=== PATIENT | female | born 1990 | race Caucasian/White ===

== ENCOUNTER 2020-04-20 15:37 | Emergency (ER) | payer OTHER ==
--- OUTSIDE RECORDS SUMMARY | 2020-04-20 15:45 | XMS ---
:1990 Author Organization [facility] Support Name Relationship Address Phone MANINDER YOUNGBLOOD [facility] [employer] [employer] Unavailable [id number] [phone] [place] [address] NEREIDA PETTY FATHER [address] [place] [address] Re-disclosure Warning The records that you are about to access may contain information from federally- assisted alcohol or drug abuse programs. If such information is present, then the following federally mandated warning applies: This information has been disclosed to you from records protected by federal confidentiality rules (42 CFR part 2). The federal rules prohibit you from making any further disclosure of this information unless further disclosure is expressly permitted by the written consent of the person to whom it pertains or as otherwise permitted by 42 CFR part 2. A general authorization for the release of medical or other information is NOT sufficient for this purpose. The Federal rules restrict any use of the information to criminally investigate or prosecute any alcohol or drug abuse patient.The records that you are about to access may contain highly sensitive health information, the redisclosure of which is protected by Article 27-F of the [facility] Public Health law. If you continue you may haveaccess to information: Regarding HIV / AIDS; Provided by facilities licensed or operated by the [facility] Office of Mental Health; or Provided by the [facility] Office for People With Developmental Disabilities. If such information is present, then the following [facility] mandated warning applies: This information has been disclosed to you from confidential records which are protected by state law. State law prohibits you from making any further disclosure of this information without the specific written consent of the person to whom it pertains, or as otherwise permitted by law. Any unauthorized further disclosure in violation of state law may result in a fine or correction sentence or both. A general authorization for the release of medical or other information is NOT sufficient authorization for further disclosure. 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 Procedure
--- NOTE | 2020-04-20 16:13 | TELE ---
HPI Do you have fever,cough or shortness of breath?: No - General Reason For Visit: COVID History Source: Patient Exam Limitations: No Limitations - History of Present Illness 04/20/20 16:08 Patient is a 29-year-old female who presents to a virtual urgent care visit for a sore throat. She was sent home from work and required to have a Covid test prior to returning. She states she has had a sore throat for the last 2 days. She denies any fevers or chills. She denies any cough or shortness of breath. She has not taken anything for her symptoms. She denies any travel outside of the [facility] within the last 30 days or outside [facility] within the last 15 days. She denies any known Covid contacts. She has no past medical history or allergies to medications. Past History - Medical History Allergies/Adverse Reactions: Allergies Allergy/AdvReac Type Severity Reaction Status Date / Time No Known Allergies Allergy Verified 03/30/16 16:28 Home Medications: Ambulatory Orders Diazepam [Valium] 5 mg PO Q8H PRN #10 tablet MDD 3 03/30/16 Naproxen [Naprosyn -] 500 mg PO BID PRN #14 tablet 03/30/16 - Immunization History Immunization Up to Date: Yes - Psycho-Social/Smoking History Smoking History: Never smoked Have you smoked in the past 12 months: No Review of Systems - Review of Systems Comments:: 04/20/20 16:10 - Review of Systems Able to Perform ROS?: Yes Constitutional: No: Fever, Chills, Loss of Appetite, Night Sweats, Weakness; positive: Covid testing HEENTM: No: Eye Pain, Vision changes, Ear Pain, Throat Swelling, Mouth Pain, Difficulty Swallowing; positive: Sore throat Respiratory: No: Cough, Shortness of Breath, Wheezing, Sputum Production Cardiac (ROS): No: Chest Pain, Chest Tightness, Palpitations, Irregular Heart Beat, Edema ABD/GI: No: Nausea, Vomiting, Abdominal Pain, Diarrhea : No Dysuria, No Hematuria, No Frequency, No Urgency Musculoskeletal: No: Muscle Pain, Back Pain, Joint Pain, Muscle Weakness, Neck Pain Integumentary: No: Lesions, Rash Neurological: No: Headache, Numbness, Tingling, Weakness, Speech Difficulties *Physical Exam - Physical Exam 04/20/20 16:11 - Physical Exam General Appearance: Nourished, Appropriately Dressed, No Distress HEENT: EOMI, Normal Voice, Hearing Grossly Normal Neck: No Decreased range of motion Respiratory/Chest: Normal chest excursion appreciated, No Accessory Muscle Use Gastrointestinal/Abdominal: No distention Musculoskeletal: Normal Inspection Integumentary: Normal Color, Dry. 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 She is required to have a Covid test to return back to school. Plan: -Covid swab ordered -Covid counseling given, isolation precautions reviewed -Patient to proceed to the [facility] for test -She understands and agrees with this treatment plan Discharge Diagnosis at time of Disposition: Sore throat - Referrals Follow-up Referral(s): Tequila Tran [Primary Care Provider] - 2 Days - Patient Instructions Discharge Instructions: Sore Throat, [facility] - Coronavirus Instructions, [facility]- [facility] COVID-19 Isolation Protocol Additional Discharge Instructions: You were seen via a telehealth visit and tested for COVID today. You should follow isolation precautions as per [facility] guidelines. Thank you for participating in our telehealth medicine program. If you have any worsening symptoms such as high fever, shaking chills, profuse vomiting or any other worsening symptoms you should go to your local emergency department immediately or follow up with your primary care doctor immediately. If you are symptomatic: Take Tylenol 650 mg every 6 hours as needed for fever or pain. You may take Robitussin or other [id number] cough syrup. Follow the dosing instructions on the bottle. Warm tea, honey, and salt water gargles may help your symptoms. Please take precautions and self quarantine for 2 weeks and follow-up with your primary care doctor and the Department of Health. Return to the nearest emergency department for shortness of breath, difficulty breathing, chest pain, or if you have any changes in your symptoms. - Discharge Disposition: HOME Condition at time of Disposition: Stable
== END 2020-04-20 16:13 | disposition home or self-care (01) ==
LOC: JVIRT 15:37
DX: Z11.59 Encounter for screening for other viral diseases (principal)
CPT/HCPCS: C9803; Q3014-GT; U0003

== ENCOUNTER 2020-04-29 09:51 | Emergency (ER) | payer OTHER | END 2020-04-29 12:09 | disposition home or self-care (01) | LOC: JVIRT 09:51 | DX: Z11.59 Encounter for screening for other viral diseases (principal) | CPT/HCPCS: C9803; Q3014-GT; U0003 ==

== ENCOUNTER 2020-06-03 09:43 | Emergency (ER) | payer OTHER | END 2020-06-03 10:34 | disposition home or self-care (01) | LOC: JVIRT 09:43 | DX: Z11.59 Encounter for screening for other viral diseases (principal) | CPT/HCPCS: C9803; Q3014-GT; U0003 ==

== ENCOUNTER 2020-08-12 12:42 | Emergency (ER) | payer OTHER | END 2020-08-12 13:59 | disposition home or self-care (01) | LOC: JVIRT 12:42 | DX: Z11.52 Encounter for screening for COVID-19 (principal) | CPT/HCPCS: C9803; G2251-GT; U0003 ==

== ENCOUNTER 2021-08-09 22:42 | Day surgery (SDC) | payer OTHER ==
[2021-08-09 23:44] LABS: EPITHELIAL CELLS MODERATE /hpf
[2021-08-09 23:45] LABS: HCG,QUALITATIVE URINE Negative
[2021-08-10 00:10] LABS: BASO % 0.4 % (0-2.0); EOS % 2.8 % (0-4.5); HEMATOCRIT 39.1 % (32.4-45.2); HEMOGLOBIN 13.6 GM/dL (10.7-15.3); LYMPH % 16.9 % (8-40); MCHC 34.8 g/dl (32.0-36.0); MEAN CELL VOLUME 86.3 fl (80-96); MEAN PLT VOLUME 7.4 fl (7.5-11.1); MONO % 8.4 % (3.8-10.2); NEUT % 71.5 % (42.8-82.8); PLATELET COUNT 364 10^3/uL (134-434); RBC 4.53 M/mm3 (3.60-5.2); RDW 13.8 % (11.6-15.6); WHITE BLOOD COUNT 13.4 K/mm3 (4.0-10.0)
[2021-08-10 00:31] LABS: CALCIUM 9.3 mg/dL (8.5-10.1)
[2021-08-10 00:32] LABS: ALBUMIN 4.4 g/dl (3.4-5.0); BLOOD UREA NITROGEN 7.5 mg/dL (7-18)
[2021-08-10 00:34] LABS: PROTHROMBIN TIME (PATIENT) 11.5 SEC (9.7-13.0)
[2021-08-10 00:35] LABS: CREATININE 0.8 mg/dL (0.55-1.3)
[2021-08-10 00:37] LABS: BILIRUBIN,TOTAL 0.8 mg/dL (0.2-1)
[2021-08-10] MEDS ORDERED: PIPERACILLIN/TAZOB 3.375 GM 3.375 GM in DEXTROSE 5%-WATER - 50 ML IVPB ONE (01:18)
[2021-08-10] MEDS ORDERED: PIPERACILLIN/TAZOBACTAM 3.375 GM VIAL IVPB ONE ×2 (01:23→07:14)
[2021-08-10] MEDS ORDERED: ACETAMINOPHEN 1000 MG/100 ML BAG IVPB ONE (01:51)
[2021-08-10] MEDS ORDERED: POLYETHYLENE GLYCOL (HEALTHYLAX) 3350 17 GM PACKET PO PRN ×2 (02:29→14:08)
[2021-08-10] MEDS ORDERED: ONDANSETRON 4 MG/2 ML VIAL IVPUSH PRN ×4 (02:36→14:08)
[2021-08-10] MEDS ORDERED: D5-NS + 20 MEQ KCL - 20 MEQ/1,000 ML INFUS.BAG IV SCH (02:45)
[2021-08-10 07:49] LABS: INR 1.09 (0.83-1.09); PROTHROMBIN TIME (PATIENT) 12.5 SEC (9.7-13.0)
[2021-08-10 07:51] LABS: ACTIVATED PTT 31.5 SECONDS (25.2-36.5)
[2021-08-10 07:56] LABS: ALBUMIN 3.7 g/dl (3.4-5.0); BILIRUBIN,TOTAL 1.3 mg/dl (0.2-1); CALCIUM 8.7 mg/dl (8.5-10); CREATININE 0.7 mg/dl (0.55-1.3); MAGNESIUM 1.7 mg/dL (1.8-2.4); TOT PROT 6.1 g/dl (6.4-8.2)
[2021-08-10] MEDS ORDERED: ACETAMINOPHEN 1000 MG/100 ML BAG IVPB PRN ×2 (08:00→14:08)
[2021-08-10] MEDS ORDERED: PIPERACILLIN/TAZOB 3.375 GM 3.375 GM in DEXTROSE 5%-WATER - 50 ML IVPB SCH (08:00)
[2021-08-10 08:24] LABS: BASO % 0.4 % (0-2.0); EOS % 2.2 % (0-4.5); HEMOGLOBIN 11.9 GM/dL (10.7-15.3); LYMPH % 18.9 % (8-40); MCH 30.2 pg (25.7-33.7); MEAN CELL VOLUME 86.3 fl (80-96); MEAN PLT VOLUME 7.7 fl (7.5-11.1); MONO % 7.3 % (3.8-10.2); NEUT % 71.2 % (42.8-82.8); PLATELET COUNT 302 10^3/uL (134-434); RBC 3.94 M/mm3 (3.60-5.2); RDW 13.8 % (11.6-15.6); WHITE BLOOD COUNT 8.6 K/mm3 (4.0-10.0)
[2021-08-10] MEDS ORDERED: ACETAMINOPHEN INJECTION 100 ML IVPB ONE (08:35)
[2021-08-10] MEDS ORDERED: BUPIVACAINE HCL/PF 0.5% (5MG/ML) 10 ML VIAL ONE (10:41)
[2021-08-10] MEDS ORDERED: LACTATED RINGERS SOLUTION 1,000 ML/1,000 ML INFUS.BAG IV SCH ×2 (11:00→14:08)
[2021-08-10 11:32] VITALS: BMI 23.2
[2021-08-10] MEDS ORDERED: ROCURONIUM BROMIDE 50 MG/5 ML SYRINGE ONE (12:01)
[2021-08-10] MEDS ORDERED: PROPOFOL 20 ML ONE (12:01)
[2021-08-10] MEDS ORDERED: MIDAZOLAM HCL 2 MG/2 ML SINGLE DOSE VIAL ONE (12:01)
[2021-08-10] MEDS ORDERED: PROMETHAZINE HCL 25 MG/1 ML VIAL IVPUSH PRN (12:11)
[2021-08-10] MEDS ORDERED: ONDANSETRON 4 MG/2 ML VIAL ONE (12:42)
[2021-08-10] MEDS ORDERED: DEXAMETHASONE SOD PHOSPHATE 4 MG/1 ML VIAL ONE (12:42)
[2021-08-10] MEDS ORDERED: BUPIVACAINE HCL/PF 0.5% (5MG/ML) 10 ML VIAL IJ ONE ×3 (12:55→13:25)
[2021-08-10] MEDS ORDERED: HYDROmorphone HCl 2 MG/ML VIAL ONE (13:01)
[2021-08-10] MEDS ORDERED: LIDOCAINE HCL/PF 2% SDV 5ML VIAL ONE (13:01)
[2021-08-10] MEDS ORDERED: NEOSTIGMINE METHYLSULFATE 0.5 MG/1 ML - 10 ML MDV ONE (13:14)
[2021-08-10] MEDS ORDERED: KETOROLAC TROMETHAMINE 30 MG/1 ML VIAL ONE (13:47)
[2021-08-10] MEDS ORDERED: oxyCODONE HCL 5 MG TABLET PO PRN (14:00)
[2021-08-10] MEDS ORDERED: PROMETHAZINE HCL 25 MG/1 ML VIAL IVPB PRN (14:08)
[2021-08-10] MEDS: PIPERACILLIN/TAZOB 3.375 GM 3.375 GM in DEXTROSE 5%-WATER - 50 ML IVPB SCH ×2 (16:25→16:26)
[2021-08-10] MEDS ORDERED: DEXTROSE 5%-WATER - 50 ML IVPB ONE (18:20)
[2021-08-10] MEDS ORDERED: cefTRIAXone SODIUM 1 GM VIAL ONE (18:20)
[2021-08-10] MEDS: CEFTRIAXONE 1 GM in DEXTROSE 5%-WATER - 50 ML IVPB SCH (18:25)
[2021-08-10] MEDS ORDERED: SIMETHICONE 80 MG TAB.CHEW (FP) PO ONE (19:28)
[2021-08-11] MEDS: oxyCODONE HCL 5 MG TABLET PO PRN ×2 (05:50→15:02)
[2021-08-11] MEDS ORDERED: DEXTROSE 5%-WATER - 50 ML IVPB ONE (08:50)
[2021-08-11] MEDS ORDERED: cefTRIAXone SODIUM 1 GM VIAL ONE (08:50)
[2021-08-11 09:34] LABS: HEMATOCRIT 33.1 % (32.4-45.2); HEMOGLOBIN 11.9 GM/dL (10.7-15.3); MCH 31.3 pg (25.7-33.7); MEAN CELL VOLUME 86.9 fl (80-96); MEAN PLT VOLUME 7.7 fl (7.5-11.1); PLATELET COUNT 278 10^3/uL (134-434); RBC 3.81 M/mm3 (3.60-5.2); WHITE BLOOD COUNT 8.7 K/mm3 (4.0-10.0)
[2021-08-11 09:53] LABS: CALCIUM 8.7 mg/dL (8.5-10.1)
[2021-08-11 09:54] LABS: MAGNESIUM 2.1 mg/dL (1.8-2.4)
[2021-08-11 09:55] LABS: BLOOD UREA NITROGEN 6.2 mg/dL (7-18)
[2021-08-11 09:57] LABS: CREATININE 0.6 mg/dL (0.55-1.3)
[2021-08-11] MEDS: CEFTRIAXONE 1 GM in DEXTROSE 5%-WATER - 50 ML IVPB SCH (10:07)
[2021-08-11] MEDS ORDERED: ACETAMINOPHEN 325 MG TABLET (FP) ONE (10:36)
[2021-08-11] MEDS ORDERED: ACETAMINOPHEN 325 MG TABLET (FP) PO PRN (11:06)
[2021-08-11] MEDS ORDERED: SODIUM CHLORIDE 0.9% 500 ML INFUS.BAG IV ONE (11:07)
[2021-08-11] MEDS: SIMETHICONE 80 MG TAB.CHEW (FP) PO PRN ×2 (11:16→15:05)
[2021-08-11 15:50] VITALS: BP 116/76; PULSE 68; TEMP 98
== END 2021-08-11 19:10 | disposition home or self-care (01) ==
LOC: FER 22:42 → UNDOADMIN 08-10 09:19 → J8W 08-10 09:19 → JASUSAT 08-11 13:14 → J8W 08-11 13:15 → JASUSAT 08-11 19:10
PROVIDERS: ATTEND Surgery
PROC: 0DTJ4ZZ Resection of Appendix, Percutaneous Endoscopic Approach (ICD-10-PCS; principal; 2021-08-11)
DX: K35.80 Unspecified acute appendicitis (principal)
CPT/HCPCS: 36415; 74177-TC; 80048; 80053; 81003; 81015; 83735; 84703; 85025; 85027; 85610; 85730; 86850; 86900; 86901; 88304-TC; 94760; 99285-25; C9803; Q9967; U0003; U0005

== ENCOUNTER 2021-08-26 03:39 | Inpatient (IN) | payer OTHER ==
[2021-08-26 03:53] VITALS: BMI 22.6
[2021-08-26] MEDS ORDERED: morphine CARPU-JECT 2 MG/1 ML DISP.SYRIN IVPUSH ONE ×2 (04:20→05:46)
[2021-08-26] MEDS ORDERED: LACTATED RINGERS SOLUTION 1000 ML INFUS.BAG IV ONE (04:23)
[2021-08-26 05:00] LABS: BASO % 0.8 % (0-2.0); HEMATOCRIT 37.7 % (32.4-45.2); HEMOGLOBIN 13.2 GM/dL (10.7-15.3); LYMPH % 25.5 % (8-40); MCH 30.3 pg (25.7-33.7); MEAN CELL VOLUME 86.6 fl (80-96); MEAN PLT VOLUME 7.4 fl (7.5-11.1); MONO % 9.6 % (3.8-10.2); NEUT % 60.1 % (42.8-82.8); PLATELET COUNT 333 10^3/uL (134-434); RBC 4.36 M/mm3 (3.60-5.2); RDW 13.5 % (11.6-15.6); WHITE BLOOD COUNT 5.3 K/mm3 (4.0-10.0)
[2021-08-26 05:30] LABS: ALBUMIN 4.1 g/dl (3.4-5.0); CALCIUM 9.5 mg/dL (8.5-10.1)
[2021-08-26 05:31] LABS: BLOOD UREA NITROGEN 12.6 mg/dL (7-18)
[2021-08-26 05:33] LABS: CREATININE 0.7 mg/dL (0.55-1.3)
[2021-08-26 05:35] LABS: BILIRUBIN,TOTAL 0.4 mg/dL (0.2-1); TOT PROT 7.3 g/dl (6.4-8.2)
[2021-08-26] MEDS ORDERED: FAMOTIDINE 20 MG/50 ML IVPB 20 MG/50 ML MG IVPB ONE (05:46)
[2021-08-26] MEDS ORDERED: ONDANSETRON 4 MG/2 ML VIAL IVPB ONE (05:46)
[2021-08-26] MEDS ORDERED: ONDANSETRON 4 MG/2 ML VIAL ONE (05:50)
[2021-08-26] MEDS ORDERED: ACETAMINOPHEN 1000 MG/100 ML BAG IVPB ONE (07:41)
[2021-08-26] MEDS ORDERED: ACETAMINOPHEN INJECTION 100 ML IVPB ONE (07:42)
[2021-08-26] MEDS ORDERED: LACTATED RINGERS SOLUTION 1,000 ML/1,000 ML INFUS.BAG IV SCH (08:15)
[2021-08-26 08:49] LABS: PH,URINE 7.5 (5.0-8.0); URINE APPEARANCE CLEAR; URINE BILIRUBIN NEGATIVE (NEGATIVE); URINE COLOR YELLOW; URINE GLUCOSE (UA) NEGATIVE (NEGATIVE); URINE KETONE NEGATIVE (NEGATIVE); URINE LEUK ESTERASE NEGATIVE (NEGATIVE); URINE NITRITE NEGATIVE (NEGATIVE); URINE PROTEIN NEGATIVE (NEGATIVE); URINE UROBILINOGEN 0.2 mg/dL (0.2-1.0)
[2021-08-26] MEDS ORDERED: HYDROmorphone HCl 2 MG/ML VIAL ONE (09:28)
[2021-08-26] MEDS: HYDROmorphone HCl 2 MG/ML VIAL IVPUSH PRN ×4 (09:32→20:05)
[2021-08-26] MEDS: LACTATED RINGERS SOLUTION 1,000 ML/1,000 ML INFUS.BAG IV SCH ×2 (10:57→18:33)
[2021-08-26] MEDS: ONDANSETRON 4 MG/2 ML VIAL IVPUSH PRN ×2 (12:45→18:32)
[2021-08-26] MEDS: ACETAMINOPHEN 1000 MG/100 ML BAG IVPB PRN ×2 (12:45→18:29)
[2021-08-26] MEDS ORDERED: KETOROLAC TROMETHAMINE 15 MG/ML VIAL IVPUSH ONE ×2 (20:23→23:15)
[2021-08-27] MEDS: HYDROmorphone HCl 2 MG/ML VIAL IVPUSH PRN (00:27)
[2021-08-27] MEDS: ONDANSETRON 4 MG/2 ML VIAL IVPUSH PRN (00:27)
[2021-08-27] MEDS: ACETAMINOPHEN 1000 MG/100 ML BAG IVPB PRN ×3 (04:22→23:42)
[2021-08-27] MEDS ORDERED: IBUPROFEN 800 MG/8 ML IJ IVPB ONE (04:29)
[2021-08-27] MEDS ORDERED: PROCHLORPERAZINE INJECTION 10 MG/2 ML VIAL IVPB ONE (04:30)
[2021-08-27] MEDS ORDERED: HYDROmorphone HCl 2 MG/ML VIAL IVPUSH ONE (04:32)
[2021-08-27 08:55] LABS: BASO % 0.4 % (0-2.0); EOS % 1.1 % (0-4.5); HEMATOCRIT 34.9 % (32.4-45.2); HEMOGLOBIN 12.3 GM/dL (10.7-15.3); LYMPH % 10.5 % (8-40); MCH 30.5 pg (25.7-33.7); MCHC 35.3 g/dl (32.0-36.0); MEAN CELL VOLUME 86.3 fl (80-96); MEAN PLT VOLUME 7.2 fl (7.5-11.1); PLATELET COUNT 288 10^3/uL (134-434); RBC 4.05 M/mm3 (3.60-5.2); RDW 13.5 % (11.6-15.6); WHITE BLOOD COUNT 10.4 K/mm3 (4.0-10.0)
[2021-08-27 09:28] LABS: ALBUMIN 3.5 g/dl (3.4-5.0); BLOOD UREA NITROGEN 10.8 mg/dL (7-18); CALCIUM 8.8 mg/dL (8.5-10.1)
[2021-08-27 09:31] LABS: CREATININE 0.6 mg/dL (0.55-1.3)
[2021-08-27 09:33] LABS: TOT PROT 6.3 g/dl (6.4-8.2)
[2021-08-27] MEDS: FAMOTIDINE 20 MG/50 ML IVPB 20 MG/50 ML MG IVPB SCH ×2 (14:42→23:00)
[2021-08-27] MEDS: LACTATED RINGERS SOLUTION 1,000 ML/1,000 ML INFUS.BAG IV SCH ×2 (14:42→23:01)
[2021-08-27] MEDS: BENZOCAINE/MENTH/CETYLPYRD CL 1 EACH LOZENGE MM PRN (14:42)
[2021-08-27] MEDS ORDERED: BENZOCAINE 20% UNIT DOSE SPRAY MM PRN (17:18)
[2021-08-27] MEDS ORDERED: FAMOTIDINE 20 MG/50 ML IVPB 20 MG/50 ML MG IVPB SCH (22:00)
[2021-08-28 08:11] LABS: BASO % 0.4 % (0-2.0); EOS % 4.1 % (0-4.5); HEMATOCRIT 33.2 % (32.4-45.2); HEMOGLOBIN 11.8 GM/dL (10.7-15.3); MCH 30.8 pg (25.7-33.7); MCHC 35.4 g/dl (32.0-36.0); MONO % 11.5 % (3.8-10.2); PLATELET COUNT 245 10^3/uL (134-434); RBC 3.82 M/mm3 (3.60-5.2); RDW 13.3 % (11.6-15.6); WHITE BLOOD COUNT 6.8 K/mm3 (4.0-10.0)
[2021-08-28 08:18] LABS: ALBUMIN 3.3 g/dl (3.4-5.0)
[2021-08-28 08:22] LABS: CREATININE 0.5 mg/dL (0.55-1.3)
[2021-08-28 08:23] LABS: TOT PROT 6.2 g/dl (6.4-8.2)
[2021-08-28 08:24] LABS: BILIRUBIN,TOTAL 0.8 mg/dL (0.2-1)
[2021-08-28] MEDS: FAMOTIDINE 20 MG/50 ML IVPB 20 MG/50 ML MG IVPB SCH ×2 (09:59→21:18)
[2021-08-28] MEDS: LACTATED RINGERS SOLUTION 1,000 ML/1,000 ML INFUS.BAG IV SCH (14:14)
[2021-08-28] MEDS: BENZOCAINE/MENTH/CETYLPYRD CL 1 EACH LOZENGE MM PRN (14:15)
[2021-08-28] MEDS ORDERED: ACETAMINOPHEN 1000 MG/100 ML BAG IVPB ONE (20:23)
[2021-08-29] MEDS: LACTATED RINGERS SOLUTION 1,000 ML/1,000 ML INFUS.BAG IV SCH ×2 (00:49→12:08)
[2021-08-29] MEDS ORDERED: ACETAMINOPHEN 325 MG TABLET (FP) PO PRN (08:20)
[2021-08-29] MEDS ORDERED: IBUPROFEN 600 MG TABLET (FP) PO ONE (08:45)
[2021-08-29] MEDS: FAMOTIDINE 20 MG/50 ML IVPB 20 MG/50 ML MG IVPB SCH (09:27)
[2021-08-29 13:45] VITALS: BP 100/68; PULSE 60; TEMP 98.3
== END 2021-08-29 17:40 | disposition home or self-care (01) | DRG 390 ==
LOC: JER 03:39 → JERBED 08:12 → J7W 11:46
PROVIDERS: ADMIT Internal Medicine
PROC: 0D9670Z Drainage of Stomach with Drainage Device, Via Natural or Artificial Opening (ICD-10-PCS; principal; 2021-08-26)
DX: K56.609 Unspecified intestinal obstruction, unspecified as to partial versus complete obstruction (principal); D64.9 Anemia, unspecified
CPT/HCPCS: 36415; 71045-TC-FY; 74019-TC-FY; 74177-TC; 76856-TC; 80053; 81003; 83615; 83690; 84703; 85025; 99285-25; C9803; Q9967; U0003; U0005